=== PATIENT | male | born 1950 | race Caucasian/White ===

== ENCOUNTER 2024-04-24 06:08 | Day surgery (SDC) | payer OTHER, SELFPAY ==
[2024-04-24] VITALS (10 sets, daily range): BP systolic 116–145; BP diastolic 65–95; BMI 36.3
[2024-04-24] MEDS: LOW STRENGTH ASPIRIN 324 MG PO (07:18)
[2024-04-24] MEDS: NSS 335 ML IV (07:19)
--- NOTE | 2024-04-24 10:36 | ITS.CL.CATH ---
Clinical Account Manager - Catheterization
Cardiac Catheterization
Procedure Report:
LEFT HEART CATHETERIZATION
Date of Procedure: April 24, 2024
Procedures performed:
1: Coronary angiography
2: Left ventricular hemodynamic assessment
Primary Care Physician: Dr. Balwinder Blanc
Primary Restorative Care Technician: Dr. Kelvin Camara
INDICATION: The patient is a 73-year-old man with a past medical history significant for aortic stenosis who presents with increasing exertional dyspnea. Echocardiography performed on March 26 showed an estimated left ventricular ejection
fraction of 50% with a mean gradient across the aortic valve of 37 mmHg and a calculated valve area of 1.0 cm� with a dimensionless index of 0.22. The patient denies any typical angina. He notes increasing exertional dyspnea over the past several
months.
ACCESS: The patient was prepped and draped in usual sterile fashion. A 6 Syrian sheath was placed in the right radial artery using the Seldinger over the wire technique.
HEMODYNAMIC FINDINGS (mmHg):
LV(s/d,EDP): 165/17, 19
Ao(s/d,m): 125/80, 95
Aortic valve gradient on pullback: Mean 34 mmHg
ANGIOGRAPHIC FINDINGS:
Single-plane Left Ventriculography in CARDONA Projection: Not done
Coronary Angiography:
Dominance: Right
Left Main: The left main is heavily calcified at the ostium. There appears to be diffuse smooth plaquing with 30 to 40% distal tapering.
Left Anterior Descending: The left anterior descending artery is a medium caliber vessel that gives rise to a small high first diagonal branch and a larger second diagonal branch. The LAD has diffuse disease from the takeoff of the first diagonal
with a focal 50% stenosis followed by a long area of diffuse disease and at worst a 70% stenosis after the takeoff of the second diagonal branch. The mid and distal LAD is widely patent with only mild luminal irregularities and appears to be a good
surgical target. The second diagonal branch has proximal 70-80% disease and also appears to be a reasonable surgical target.
Left Circumflex: The left circumflex is a relatively large vessel that gives rise to a huge first obtuse marginal branch and a smaller distal left-sided posterior left ventricular branch. The first obtuse marginal branch has a smooth 70% proximal
stenosis with distal luminal irregularities and normal flow. The distal PLV branch is widely patent.
Right Coronary: The right coronary artery has a high anterior takeoff and was engaged using a 6 Syrian AL-1 diagnostic catheter. The right coronary artery is a large-caliber vessel that has diffuse moderate luminal irregularities throughout the AV
groove with diffuse calcification. There is a proximal 70% calcified stenosis followed by a mid 50 to 60% stenosis. The distal vessel bifurcates into a large posterior left ventricular branch and posterior descending artery. These vessels are
patent with mild luminal irregularities.
Fluoroscopy Time (min): 4.5
Radiation Dose (mGy): 586
DAP (Gy.cm2): 38
Closure device: None. A TR band was applied for hemostasis at the right wrist.
Complications: None.
ASSESSMENT:
1: Multivessel obstructive coronary artery disease with obstructive disease in the LAD, major first obtuse marginal branch, and proximal right coronary artery as described above. I think there are good surgical targets in the LAD, major diagonal,
OM1, and right coronary artery.
2: Severe aortic valvular stenosis.
CONCLUSIONS and RECOMMENDATIONS:
1: CT surgical evaluation for CABG and surgical aortic valve replacement.
2: Medical therapy for coronary artery disease. Start high dose high intensity statin therapy.
Narciso Pena M.D.
Copy to: Dr. Balwinder Blanc
== END 2024-04-24 11:45 | disposition home or self-care (01) ==
LOC: CATH 06:08
PROVIDERS: ATTENDING PHYSICIAN Internal Medicine Interventional Cardiology; FAMILY PHYSICIAN Student in an Organized Health Care Education/Training Program; OTHER PHYSICIAN Internal Medicine Cardiovascular Disease
DX: I35.0 Nonrheumatic aortic (valve) stenosis (principal); R06.09 Other forms of dyspnea; I25.10 Atherosclerotic heart disease of native coronary artery without angina pectoris; Z79.82 Long term (current) use of aspirin
CPT/HCPCS: 93005; 93458; C1894; Q9967

== ENCOUNTER → 2024-05-15 11:57 | Outpatient (REF) | payer OTHER, SELFPAY | LOC: RAD 11:57 | PROVIDERS: ATTENDING PHYSICIAN Nurse Practitioner Acute Care | DX: I35.0 Nonrheumatic aortic (valve) stenosis (principal) | CPT/HCPCS: 74174; 75572; Q9967 ==

== ENCOUNTER 2024-05-29 08:03 | Inpatient (IN) | payer OTHER, SELFPAY ==
[2024-05-09 08:32] VITALS: BMI 37.8
[2024-05-09 09:27] LABS: Urine Albumin 1+ (Neg - Trace); Urine Bilirubin Negative (Negative); Urine Character Clear (Clear); Urine Color Yellow; Urine Glucose Negative (Negative); Urine Ketone Negative (Negative); Urine Leukocyte 1+ (Negative); Urine Nitrite Negative (Negative); Urine Occult Blood Negative (Negative); Urine Specific Gravity 1.015 (<1.030); Urine Urobilinogen Negative (Neg - 1+)
[2024-05-09 09:44] LABS: % Basophils 0.9 % (0-2); % Eosinophils 3.1 % (0-6); % Immature Granulocytes 0.3 % (0-0.5); % Lymphocytes 26.6 % (20.5-51.1); % Monocytes 10.7 % (1.7-9.3); % Neutrophils 58.4 % (42.2-75.2); ALT (SGPT) 23 U/L (0-50); AST (SGOT) 29 U/L (17-59); Absolute Basophils 0.1 10^3/uL (0-0.2); Absolute Eosinophils 0.2 10^3/uL (0-0.7); Absolute Lymphocytes 1.5 10^3/uL (1.2-3.4); Absolute Monocytes 0.6 10^3/uL (0.1-0.6); Absolute Neutrophils 3.4 10^3/uL (1.4-6.5); Albumin 4.2 g/dl (3.5-5.0); Alkaline Phosphatase 78 U/L (38-126); Blood Urea Nitrogen 13 mg/dl (9-20); Calcium 9.9 mg/dl (8.4-10.2); Carbon Dioxide 28 mmol/L (22-30); Chloride 103 mmol/L (98-107); Direct Bilirubin 0.2 mg/dl (0.0-0.4); Estimated Creatinine Clearance 115 ml/min; Glucose 98 mg/dl (70-99); Hematocrit 41.6 % (39.0-52.0); Hemoglobin 14.1 g/dL (13.0-18.0); Mean Corp Hgb Conc. 33.9 g/dL (33.0-37.0); Mean Corpuscular Hgb 31.8 pg (27.0-31.0); Mean Corpuscular Volume 93.9 fL (80.0-94.0); Mean Platelet Volume 10.8 fL (7.4-10.4); Nucleated Red Blood Cells % 0 % (-); Platelet Count 150 10^3/uL (130-400); Potassium 4.3 mmol/L (3.5-5.1); Red Blood Cell Count 4.43 10^6/uL (4.70-6.10); Sodium 139 mmol/L (135-145); Total Bilirubin 0.8 mg/dl (0.2-1.3); Total Protein 7.2 g/dl (6.3-8.2); White Blood Cell Count 5.8 10^3/uL (4.8-10.8); eGFR > 60.00
[2024-05-09 09:47] LABS: INR 0.97; PT 13.4 Sec (11.4-14.6)
[2024-05-09 09:48] LABS: APTT 29.7 Sec (23.4-35.0)
--- NOTE | 2024-05-09 10:07 | CM ---
Met with Mr. Victoria and his daughter in [facility]. He states prior to admission he resides alone in a two story home with four steps to enter. He states he has a first floor set-up. He states prior to admission he was independent with ambulation and
adls. He states he does not have any DME in the home. He states he has a prescription plan and uses [facility]. He states his son Chris will stay with him a few days to assist in his care if needed. He has four children who are supportive.
The discharge plan is to return home with his son staying with him and a home visit by the Transitional Care Nurse when medically stable.
We reviewed pre-op and post-op routines. We reviewed the shower instructions. He has the soap, written instructions and the Cardiothoracic Surgery Educational Booklet. We reviewed restrictions including sternal precautions and driving
restrictions. We also discussed a home visit by the Transitional Care Nurse. He is agreeable to a home visit. The plan is for AVR/CABG on Friday, May 24, 2024.
[2024-05-09 10:46] LABS: Glycohemoglobin (HgbA1c) 5.2 % (4.0-5.6)
[2024-05-09 12:52] LABS: Urine Mucus Many
[2024-05-09 12:53] LABS: Urine Amorphous Seen; Urine Calcium Oxalate Crystals Seen; Urine Urothelial Cell 0-2 /LPF (FEW)
[2024-05-09 12:54] LABS: Urine Red Blood Cell 0-2 /HPF (0-2)
[2024-05-29] VITALS (11 sets, daily range): BP systolic 83–182; BP diastolic 51–138; BMI 36.0
[2024-05-29] MEDS: MAGNESIUM OXIDE 500 MG PO (08:32)
[2024-05-29] MEDS: LOPRESSOR 25 MG PO (08:32)
[2024-05-29] MEDS: PROTONIX 40 MG PO (08:32)
[2024-05-29] MEDS: BACTROBAN 2% OINTMENT 1 APPLIC NASAL ×2 (08:32→20:20)
--- NOTE | 2024-05-29 09:06 | PTCARENOTE ---
Pt admitted to cvicu, surgical clip and chg wipe prep completed. Lt arm bp 20 less then right arm. relayed to CT RAPID OUTSOLE STITCHER. Pre op meds administered. family at bedside
--- NOTE | 2024-05-29 10:29 | CM ---
CM following for DC planning needs.
Patient in OR today for planned CT Surgery.
Reviewed initial assessment. Pt. resides alone in a private, 2 story home/ 4 RYAN. Functionally, patient is indep. w/ ADLs, mobility without any assisted device.
DC plan is for home w/ CT Transitional Care RN. Son, Chris to stay temporarily with patient as he recovers.
CM to follow.
--- NOTE | 2024-05-29 10:53 | W.CVOR.SURPR ---
CVOR Surgeon Immed Pre Op
-
I have examined this patient prior to performance of the scheduled procedure.
The patient's condition is unchanged from the time of the dictated/written History and
Physical and the patient is able to undergo the scheduled procedure.
AVR + CABG + NICOLÁS Clip
[2024-05-29 12:16] LABS: ACT+ - POC 98 Seconds (82-134)
[2024-05-29 13:25] LABS: Urine Albumin Negative (Neg - Trace); Urine Bilirubin Negative (Negative); Urine Character Cloudy (Clear); Urine Color Yellow; Urine Glucose Negative (Negative); Urine Ketone Negative (Negative); Urine Leukocyte 1+ (Negative); Urine Nitrite Negative (Negative); Urine Occult Blood 3+ (Negative); Urine Urobilinogen Negative (Neg - 1+)
[2024-05-29 14:05] LABS: B.E. - POC 3.6 mmol/L; Glucose - POC 102 mg/dl (70-99); HCO3 - POC 28 mmol/L (21-28); Hematocrit - POC 35 % PCV (42-52); Hemodilution- POC No; Hemoglobin Calculated - POC 11.9; Lactate - POC 0.65 mmol/L (0.36-0.75); O2 Saturation %Calculated-POC 99.6 % (94-98); PCO2 - POC 42 mmHg (35-48); PO2 - POC 171 mmHg (83-108); POC Comment PRE; Potassium - POC 3.9 mmol/L (3.5-5.1); Sodium - POC 143 mmol/L (136-145); Specimen Type - POC Arterial; pH - POC 7.44 (7.35-7.45)
[2024-05-29 15:09] LABS: ACT+ - POC 629 Seconds (82-134)
[2024-05-29 15:19] LABS: Urine Amorphous Seen; Urine Red Blood Cell 16-20 /HPF (0-2)
[2024-05-29 15:19] LABS: B.E. - POC 5.6 mmol/L; Glucose - POC 156 mg/dl (70-99); HCO3 - POC 30 mmol/L (21-28); Hematocrit - POC 29 % PCV (42-52); Hemodilution- POC Yes; Hemoglobin Calculated - POC 9.8; Ionized Calcium - POC 1.11 mmol/L (1.15-1.33); Lactate - POC 0.97 mmol/L (0.36-0.75); O2 Saturation %Calculated-POC 99.9 % (94-98); PCO2 - POC 41 mmHg (35-48); PO2 - POC 305 mmHg (83-108); POC Comment CPB; Potassium - POC 4.7 mmol/L (3.5-5.1); Sodium - POC 141 mmol/L (136-145); Specimen Type - POC Arterial; pH - POC 7.47 (7.35-7.45)
[2024-05-29 15:22] LABS: Urine Bacteria Few (Negative)
[2024-05-29 15:32] LABS: ACT+ - POC 621 Seconds (82-134)
[2024-05-29 15:57] LABS: B.E. - POC 1.7 mmol/L; Glucose - POC 157 mg/dl (70-99); HCO3 - POC 26 mmol/L (21-28); Hematocrit - POC 29 % PCV (42-52); Hemodilution- POC Yes; Hemoglobin Calculated - POC 9.9; Ionized Calcium - POC 1.09 mmol/L (1.15-1.33); Lactate - POC 1.75 mmol/L (0.36-0.75); O2 Saturation %Calculated-POC 99.8 % (94-98); PCO2 - POC 36 mmHg (35-48); PO2 - POC 228 mmHg (83-108); POC Comment WARM; Potassium - POC 3.9 mmol/L (3.5-5.1); Sodium - POC 143 mmol/L (136-145); Specimen Type - POC Arterial; pH - POC 7.46 (7.35-7.45)
[2024-05-29 16:01] LABS: ACT+ - POC 104 Seconds (82-134)
[2024-05-29 16:04] LABS: B.E. - POC 4.1 mmol/L; Glucose - POC 107 mg/dl (70-99); HCO3 - POC 29 mmol/L (21-28); Hematocrit - POC 29 % PCV (42-52); Hemodilution- POC Yes; Ionized Calcium - POC 1.32 mmol/L (1.15-1.33); Lactate - POC 2.67 mmol/L (0.36-0.75); O2 Saturation %Calculated-POC 99.9 % (94-98); PCO2 - POC 42 mmHg (35-48); PO2 - POC 243 mmHg (83-108); POC Comment POST; Potassium - POC 3.9 mmol/L (3.5-5.1); Sodium - POC 144 mmol/L (136-145); Specimen Type - POC Arterial; pH - POC 7.44 (7.35-7.45)
--- NOTE | 2024-05-29 16:30 | CON.CAR ---
Addendum entered and electronically signed by Dinesh Whitman MD 05/29/24 17:34:
I saw and examined the patient.
The Behavior Interventionist's note was reviewed and I agree with the note.
Comment: Briefly, 73-year-old man past medical history of multivessel CAD and severe aortic stenosis who underwent AVR/CABG/left atrial appendage clip earlier today.
Patient is resting comfortably in the CVICU where he is intubated and lightly sedated with eyes opening to voice
Warm and well-perfused on exam
Filling pressures are mildly elevated based on invasive hemodynamics, suspect he will need IV diuretics
Currently maintaining sinus rhythm on telemetry
Twelve-lead ECG appears unchanged compared to prior
Agree with medical therapy as ordered�aspirin/Plavix/high intensity statin/beta-maddie/amiodarone
We will continue to follow with you
Original Note:
Consultation
Consultation Request
Date/Time Consultation Performed: 05/29/24
Requesting Provider: Dr. Worrell
Performing Provider: Subha Lockhart PA-C for Dr. Brown
Reason for Consultation: CABG/AVR
Medical History
-
Chief Complaint: CABG/AVR
History of Present Illness:
Patient is a 73-year-old male followed by Dr. Kelvin Camara of [facility] with hyperlipidemia, bilateral carotid stenosis, hypertension, [place], prediabetes, seen by alterations tailor for HARVEY. EF by echo 03/2024 with EF of 50%, severely dilated left atrium, moderate
to severe with mean gradient 37.3 and STEPHANIE 1.03 cm�, felt to be significantly worsened compared to prior from 2021 echo. With multivessel coronary disease by recent cath 04/24/24 as well, therefore referred to CT surgery. He presented today for
CABG/AVR/left atrial appendage clip. He remains intubated and sedated at this time.
PMH:
Severe
MV CAD by cath 04/24/24
HTN
HLD
mild B/L carotid stenosis, <50% stenosis overall B/L
[place]
Prediabetes
Bilateral lower extremity neuropathy
OA
Obesity
History of multinodular goiter
Former smoker
Alcohol use disorder
Past Medical History
Past Medical History: Other (in HPI)
Social History
Tobacco: Former Smoker
Employment: Retired
Family History
Family History: CAD (in father) and Other (AVR in sister per records)
Allergies / Home Medications
Allergy/AdvReac Type Severity Reaction Status Date / Time
doxycycline Allergy Rash Verified 05/29/24 15:38
�Medication �Instructions �Recorded �Confirmed �Type
ascorbic acid (vitamin C) 1,000 mg 1 g PO QID 04/24/24 05/29/24 History
tablet (Vitamin C)
aspirin 81 mg chewable tablet 81 mg PO DAILY #1 tab 04/24/24 05/29/24 Rx
cholecalciferol (vitamin D3) 125 125 mcg PO DAILY 04/24/24 05/29/24 History
mcg (5,000 unit) tablet (Vitamin
D3)
naproxen 500 mg tablet 500 mg PO BID 04/24/24 05/29/24 History
omega 5-cbf-wip-fish oil 1,000 mg 1 cap PO BID 04/24/24 05/29/24 History
(120 mg-180 mg) capsule (Fish Oil)
vitamin B complex 1 cap PO BID 04/24/24 05/29/24 History
Magnesium Oxlate 1 spray topical DAILY 05/08/24 05/29/24 History
niacin 500 mg tablet 500 mg PO QID 05/08/24 05/29/24 History
vitamin E 1 cap PO QID 05/08/24 05/29/24 History
zinc 50 mg PO DAILY 05/08/24 05/29/24 History
Review of Systems
-
Unable to obtain full review of systems at this time due to: Patient Intubation
Physical Exam
Vital Signs
BP Pulse Ox
161/98 97
03/19/25 08:16 05/29/24 08:16
Physical Exam
General: No Apparent Distress, Comfortable and Intubated
HEENT: Normocephalic and Moist Mucous Membranes
Respiratory: Clear and Non Labored Respirations
Cardiac: S1/S2 and Regular Rhythm
Musculoskeletal: No Clubbing, No Cyanosis, No Edema and Other (arleen wrap to RLE)
Skin: Warm, Dry and Other (sternotomy )
Neuro: Sedated
Impression / Plan
-
Primary Teacher Education Director: Dr. Camara of [facility]
Assessment:
Status post CABG x 4, bioprosthetic AVR, left atrial appendage clip 05/29/24
Severe
MV CAD by cath 04/24/24
HTN
HLD
mild B/L carotid stenosis, <50% stenosis overall B/L
[place]
Prediabetes
Bilateral lower extremity neuropathy
OA
Obesity
History of multinodular goiter
Former smoker
Alcohol use disorder
Plan:
-s/p CABG x4, bio AVR, NICOLÁS clip 05/29/24
-intubated, sedated
-off pressors. follow BPs
-in SR on tele. awaiting post op EKG
-continue post op care
-continue OP asa. does not appear to be on a statin as OP, would add post op
-d/w nursing
Data Reviewed
-
Medical Tests (Nuc Med, Echo etc): Report Reviewed by me
Labs: Labs Reviewed by me
Old Records: Reviewed
--- NOTE | 2024-05-29 16:33 | W.PN.CT.SURG ---
CT Surgery Operative Note
-
CARDIAC SURGERY OPERATIVE REPORT
Preoperative Diagnosis: Aortic valve stenosis with multivessel coronary artery disease with symptoms
Postoperative Diagnosis: Same
Procedure(s) Performed:
1. Standard sternotomy with aortic and right atrial cannulation
2. Internal mammary artery harvesting
3. Coronary artery bypass grafting x 4 (In situ BERNABE to LAD, Ao to RSVG to diagonal sequential to OM, Ao to RSVG to RPDA)
4. Surgical aortic valve replacement [25 mm bioprosthetic valve]
5. Left atrial appendage exclusion [40 mm clip]
6. Placement temporary ventricular pacing wire
7. Trans-esophageal echocardiography
Date of Surgery: 05/29/24
Comorbidities:
1. Severe aortic valve stenosis
2. Multivessel coronary artery disease with symptoms
3. Stable angina
4. Hyperlipidemia
5. Bilateral carotid stenosis
6. Hypertension
7. GLORIA
8. Prediabetic
9. Multi nodular goiter
10. Osteoarthritis
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
12. Alcohol use disorder
Attending Surgeon: David Worrell MD, MS
Assistants: Liberty Abraham PA-C (present and necessary to assistant maintenance manager, endoscopic vein harvest, retraction, suction, exposure, suture management, and wound closure under my direction) and Kelvin Elizabeth MD (Cardiac Surgery [facility])
Anesthesiology: Jasper Shah MD and Catnia Mahan CRNA
Scrub and Circulating RNs: Yuly Fowler, OSVALDO, Christine Chicas RN
Restaurant Floor Manager: Jordan Grady CCP
Anesthesia: GETA
EBL: per perfusion records
Products: none
CPB Time: 119 minutes
Aortic Cross Clamp Time: 106 minutes
Indication(s) for Procedures: This is a 73-year-old male with aortic valve stenosis and multivessel coronary disease, he was symptomatic with shortness of breath on exertion and increased fatigue. Given his disease pattern and his aortic valve
stenosis, multidisciplinary team discussion was to pursue surgical revascularization and surgical aortic valve replacement as part of his lifetime management. The STS risk was discussed with the patient, the risks were reviewed with the patient and
accept them and so we proceeded with surgery. A TAVR CT scan was performed prior to surgery in preparation for possible TAVR in SAVR down the line.
Aortic Valve Description: Heavily calcified trileaflet aortic valve, left and right coronary ostia the normal anatomic positions, heavy calcification into the body of the leaflet and into the annulus particularly towards the left coronary cusp.
Conduit(s) Quality:
BERNABE -excellent/skeletonized excellent flow
RSVG -excellent/uniform with minimal varicosities
Target(s) Quality:
RPDA - Excellent/mean flow of approximately 56 cc a minute with a pulsatile index of 1.5
OM -excellent/this was part of a sequential graft, mean flow down the sequential vein graft was 60 cc a minute at a pulsatile index of 4.4
Diagonal�excellent see above
LAD -excellent/mean flow of approximately 50 cc a minute at a pulsatile index of 2.8
Findings: LVEF on intraoperative ANDREAS was 60% and 60% post procedure with no new regional wall motion abnormalities. His aortic valve was trileaflet and heavily calcified. The aortic valve was replaced with a total of 15 nonpledgeted 2 Ethibond
sutures placed circumferentially from LVOT through annulus through sewing cuff. These were secured into place with core knots. There was no prosthetic PVL or AI. Mean gradient across the prosthesis was 13 mmHg however he was hyperdynamic at this
time with the cardiac index of 2.6. The BERNABE was harvested in a skeletonized fashion. Following bypass grafting, test dose cardioplegia was given down each distal and confirmed patency and hemostasis. Flow probe assessment was done on each graft
which demonstrated excellent mean flow and pulsatility indices. No inotrope or needed, no blood products were given, he was in sinus rhythm after short period of VVI pacing. His left atrial appendage was verified to be free of any thrombus or
debris preoperatively and found to be totally occlusive postoperatively
Specimen(s): Aortic valve leaflets.
Prosthesis:
1. 40 mm clip, serial number: [id number]
2. 25 mm Medtronic Avalus ultra bioprosthetic valve, serial number [id number]
Description of Procedure: The patient was taken to the operating room. Their identity and procedure to be performed were verified and they were positioned supine on the operating table. Induction via general anesthesia with endotracheal intubation
was performed and central venous access and arterial monitoring were inserted. A preoperative transesophageal echocardiogram was performed. The patient was then prepped and draped from chin to feet in a sterile fashion. A preoperative time-out was
performed with all members of the team present. A midline chest incision was performed along with median sternotomy. Simultaneous endoscopic access of the right lower extremity for saphenous vein harvest was obtained along with administration of an
initial 5,000 units of IV heparin. A RulTract sternal retractor was positioned to exposure the left internal mammary bed. The mammary was harvested in a skeletonized fashion and found to have good flow. A bulldog clamp was applied to the distal end
of the mammary after dividing it. It was wrapped in a papaverine soaked RayTec and replaced back into the left hemithorax. The RulTract was exchanged for a median sternal retractor. The innominate vein was isolated. Full heparinization was given (a
total of 65,000 units). I created a pericardial well. The aortic cannulation site was chosen where it was soft, pliable, and free of calcium. Cannulation was performed with an arterial cannula in the ascending aorta and a triple-stage venous cannula
through the right atrial appendage. The arterial cannula line had an appropriate bounce and correlating pressures with test dosing. Next, a root vent/antegrade cannula was inserted into the ascending aorta. The ACT was confirmed to be over 400 and
retrograde autologous priming was performed before commencing cardiopulmonary bypass. The pulmonary artery was away from the aorta to facilitate a clamp site. The aortic cross-clamp was placed after decreasing the flow on the bypass and
mean arterial pressure. A total of 1.2L initial dose of antegrade Del-Nido cardioplegia solution was given and planned for re-dosing every 75 minutes as necessary. There was rapid electro-mechanical arrest of the heart at 300 cc of cardioplegia. The
left ventricle was observed for distention on echocardiogram and manual palpation. Cold slush was placed into a sponge and topically on the RV while we systemically cooled to 34 degrees centigrade. Once heart was fully arrested it was rotated
medially and the left atrial Penders was clipped with a 40 mm device.
Since I ready had positioned the heart and or expose the lateral wall, the OM target was identified and a small coronary arteriotomy was created with a sharp blade and enlarged with Caballero scissors. The vein was beveled and end-to-side anastomosis
was created with 7-0 Prolene in a running fashion. Antegrade cardioplegia was given down the graft to test patency and hemostasis was confirmed. Next the heart was positioned in order to expose a large diagonal vessel. The underbelly of the vein
graft was incised and a [id number]-[id number] anastomosis was created with 7-0 Prolene in running fashion. A bulldog clamp was placed in the distal end of the vein graft and cardioplegia was given down the vein graft test with patency and hemostasis. The
vein graft was then measured and cut to the aorta. I positioned the heart to expose the distal right coronary at the posterior descending artery. A sleetmute blade was used to expose the coronary and perform the arteriotomy. Coronary Caballero scissors
were used to enlarge the incision. The saphenous vein was trimmed and beveled to an appropriate size. The distal anastomosis was performed using 7-0 prolene in an end-to-side fashion. Antegrade cardioplegia was administered into the graft.
Appropriate hemostasis and flow were confirmed. The graft was measured for length to the aorta and cut. A suitable target on the mid/distal left anterior descending was identified. We dissected and prepared the distal target in a similar fashion. We
retrieved the BERNABE from the chest and created a pericardial opening while being cognizant of the phrenic nerve to facilitate the course of the mammary. The distal end of the mammary was prepped and beveled to size. We verified orientation and length
of the PABLO and found brisk flow. An end-to-side anastomosis was created with a 7-0 prolene. We temporarily released the bulldog clamp on the mammary to inspect flow. Perfusion to the LAD territory was visualized and hemostasis was confirmed. The
bull clamp was replaced on the mammary.
Carbon dioxide was used to flood the field. A 20 LV vent was placed via the right superior pulmonary vein. I turned my attention to the aortic valve and manually identified the location of the right coronary take off. An aortotomy was made
approximately 1.5cm above the sinotubular junction. The location of both left and right coronary vessels were visualized in the root. The aortic valve was inspected and found to be heavily calcified. The leaflets were excised and sent for
pathological assessment. The annulus was debrided of any calcium. The root and left ventricular outflow tract were thoroughly irrigated to remove any debris. A total of 15, nonpledgeted 2-0 ethibond annular sutures were placed [id number]
circumferentially. These were brought through the sewing cuff of the prosthetic valve which as then parachuted into place. The left and right coronary ostia were visualized and were unobstructed by the valve. A Cor-Knot device was used to secure the
annular sutures. The valve was inspected and was well seated. The aortotomy was approximated with 4-0 prolene in two layers. The heart was filled and the root was distended with antegrade cardioplegia to make final assessment of graft length and
orientation. I created 2 aortotomies using a #11 blade then a 4.0mm aortic punch above the aortic suture line. The proximal anastomoses were created in an end-to-side fashion using 6-0 Prolene. At the same time, we started to re-warm to 36.5 degrees
centigrade. The bulldog clamp was removed from the mammary and temporary bipolar ventricular pacing wires were placed on the base of the right ventricle. The patient was placed in a Trendelenburg position and flows on bypass were lowered. The aortic
cross clamp was removed and flows were slowly brought back up. The aortotomy appeared hemostatic. All bypass grafts were inspected and were free from kinking or twisting. The distal and proximal anastomoses appeared hemostatic. De-airing maneuvers
were performed. Transesophageal echocardiography revealed no paravalvular leak and appropriate prosthetic function. Once de-airing was satisfactory, the left ventricular and root vents were removed. After verifying acceptable parameters, we
initiated weaning from cardiopulmonary bypass. Once we were off cardiopulmonary bypass, the venous cannulas was clamped and removed. A test dose of protamine was administered and the patient was monitored for any adverse reaction before resuming
protamine. Once half of the protamine dose was delivered, pump suckers were turned off and the systolic blood pressure was lowered for aortic decannulation. The aortic cannula was removed and pursestrings were tied down. All cannulation sites were
oversewn with a 4-0 prolene. The aortic line, proximal, and distal coronary anastomoses were hemostatic. The mammary bed was inspected and hemostasis was confirmed. Once the mediastinum was hemostatic, a 19Fr Wilver drain was placed in the left
pleural cavity and two 24Fr Wilver drains were placed within the pericardium. The sternum was approximated with 4#7 single and 3 #8 double stainless steel wires. Fascia was approximated with #1 vicryl suture. The subcutaneous, dermis and epidermis
were closed in layers in a running fashion. The skin wound was cleansed and dressed.
All instrument, sponge, and needle counts were confirmed to be correct x 2 at the end of the operation. The patient was transferred to the cardiac intensive care unit in critical but stable condition.
I, Dr. David Worerll, was present, scrubbed for, and performed all critical elements of this procedure.
David Worrell MD, MS
Cardiothoracic Surgeon
[facility]
This operative dictation was created using the Conzoom dictation system. Please excuse any grammatical, typographical, or 'sound alike' errors
[2024-05-29 17:00] LABS: Glucose - Point of Care 116 mg/dl (70-99)
[2024-05-29 17:12] LABS: B.E. 0.6 mmol/L; Ionized Calcium 1.28 mMOL/L (1.15-1.33); PCO2 44 mmHg (35-48); PO2 76 mmHg (83-108); Potassium 3.9 mMOL/L (3.5-5.1); Sodium 139 mMOL/L (136-145); pH 7.38 (7.35-7.45)
[2024-05-29 17:14] LABS: Mixed Venous O2 Saturation 77.8 %
[2024-05-29 17:15] LABS: Hematocrit 29.8 % (39.0-52.0); Hemoglobin 10.5 g/dL (13.0-18.0); Platelet Count 104 10^3/uL (130-400)
[2024-05-29] MEDS: KCL 50 IV (17:20)
--- NOTE | 2024-05-29 17:23 | PTCARENOTE ---
Received pt from CVOR team. Intubated and sedated. Placed on SIMV 60% rate 12 tv 600 psv 5 peep 5 pulse ox 95%. SR on monitor. RT IJ cordis with swan floated to 43 cm. LT radial A line transducing. Lines leveled, recalibrated and flushed.
Epicardial wire to back up of vvi 50. No pacing noted at present. Chest tubes x 3 to - 20 cm suction. No air leak or crepitus noted. Abdomen soft , hypo active bowel sounds noted. Tucker draining clear yellow urine. RT groin puncture site well
approximated. Rt SVG site also well approximated with Tomasz wrap intact. Pulses palpable. Drips infusing on arrival precedex. Plan discussed with CT team.
[2024-05-29 17:24] LABS: INR 1.34; PT 17.1 Sec (11.4-14.6)
--- NOTE | 2024-05-29 17:28 | W.PN.UPDATE ---
Update Note
Progress Note Update
73-year-old male was electively admitted on 05/29/2024 for AVR, CABG, clip due to aortic stenosis and triple-vessel coronary disease. Op note, the left upper extremity blood pressure was lower than the right upper extremity pressure by 20
mmHg
IV fluids: 1000
U.O.:� 500
Blood:� none
Wires:� V-wires
Drips: Levo @ 4, Insulin
Sedatives:� Precedex @ 0.4
�
NEURO: sedated, pupils +2mm B/L
RESP: #8OT @24cm> 600/40%//. Lungs clear B/L. 2 mediastinal (50cc on arrival) and L pleural (5cc on arrival) chest tubes to -20cm suction. Sanguineous drainage, no airleak, no crepitus.
CV: RRR +S1, S2, no S3, no�rub, no murmur. Dermabond to median sternotomy. RIJ w/Leiter locked @ 48cm. PA 32/20; CVP 14; C.O 5.35/CI 2.38
ABD: round, soft, no BS
EXT: no edema, +2/4 DP pulses B/L, no femoral bruit, RLE TUCKER wrap intact; left radial A-line intact
: Tucker with clear yellow urine
�
A/P: POD #0 s/p AVR #25mm Avalus Ultra, CABG x 4 (BERNABE-LAD, SVG-Diag & OM, SVG-AVIONICS REPAIR TECHNICIAN), LAAE #40mm clip
ANDREAS: EF�65%, AV 25/13mmHg
- wean and extubate
- will need instruction regarding antibiotic prophylaxis for dental and invasive procedures
# CAD
- will begin ASA, Plavix, statin, beta maddie when off pressors and extubated
�
# acute surgical blood loss anemia-expected
- trend CBC
�
# Obesity (Class I)
- chol lowering diet
[2024-05-29 17:33] LABS: Blood Urea Nitrogen 14 mg/dl (9-20); Estimated Creatinine Clearance > 125 ml/min; Glucose 110 mg/dl (70-99); Magnesium 2.5 mg/dl (1.6-2.3)
[2024-05-29] MEDS: PACERONE PO ×2 (17:59→21:57)
[2024-05-29] MEDS: NEURONTIN PO ×2 (17:59→21:57)
[2024-05-29] MEDS: NSS 500 IV (17:59)
[2024-05-29] MEDS: ANCEF 10 IV ×2 (17:59)
[2024-05-29] MEDS: TYLENOL PO ×2 (18:00→21:58)
[2024-05-29] MEDS: CARDENE 200 IV (18:01)
[2024-05-29 18:11] LABS: Glucose - Point of Care 138 mg/dl (70-99)
--- NOTE | 2024-05-29 18:11 | PTCARENOTE ---
Awakens spontaneously, nodding head appropriately to questions. but drifts back to sleep quickly.
[2024-05-29] MEDS: OFIRMEV 100 IV (18:40)
[2024-05-29 18:55] LABS: Glucose - Point of Care 147 mg/dl (70-99)
--- NOTE | 2024-05-29 19:00 | PTCARENOTE ---
Received pt from [facility]. pt is s/p CABGx4, AVR, NICOLÁS clip. pt is resting comfortable in bed. pt is sedated and intubated. pt responds to voice, opens eyes, moves all extremities and follows commands. heart sounds audible, rub present, radial and DP
pulses palpable, no edema noted, temp epicardial V-wires present, not connected to pacer box. lungs clear, diminished at b/l bases, spo2 97%, ETT @25cm, vent set to SIMV TV 600, PEEP 5, Fio 40%, left pleural CT and x2 MS CT to -20 wall suction, no
air leaks, no tidaling, no crepitus. hypoactive BS, abdomen soft, non tender, round/obese. pt voiding clear yellow urine via rosas catheter. surgical sites maintained. right ij cordis/swan, left A-line, PIV all maintained, leveled, and zeroed.
insulin and Precedex infusing. will continue to monitor.
[2024-05-29 20:02] LABS: Glucose - Point of Care 155 mg/dl (70-99)
[2024-05-29] MEDS: SENOKOT-S PO (20:20)
[2024-05-29 20:46] LABS: B.E. -0.1 mmol/L; HCO3 25.9 mmol/L (21-28); Ionized Calcium 1.24 mMOL/L (1.15-1.33); PCO2 47 mmHg (35-48); PO2 111 mmHg (83-108); Potassium 4.3 mMOL/L (3.5-5.1); Sodium 138 mMOL/L (136-145); pH 7.35 (7.35-7.45)
[2024-05-29 20:47] LABS: Hematocrit 32.8 % (39.0-52.0); Hemoglobin 11.5 g/dL (13.0-18.0); Platelet Count 124 10^3/uL (130-400)
[2024-05-29 21:02] LABS: Glucose - Point of Care 136 mg/dl (70-99)
--- NOTE | 2024-05-29 21:10 | PTCARENOTE ---
ABG lab drawn and resulted. CVPA reviewed labs and gave ok to extubate. extubated at 2109 by RT. pt AAOx4. mouth care provided.
[2024-05-29] MEDS: DILAUDID 0.25 MG IV (21:13)
[2024-05-29] MEDS: ANCEF 5 IV (21:15)
--- NOTE | 2024-05-29 21:15 | PTCARENOTE ---
Pt resting comfortably in bed. extubated at 2109. CHG bath provided, mouth care provided, and rosas care provided. 0.25mg of dilaudid given for pain. call lopez within reach. will continue to monitor.
[2024-05-29] MEDS: LIPITOR PO (21:57)
[2024-05-29 22:06] LABS: Glucose - Point of Care 145 mg/dl (70-99)
[2024-05-29] MEDS: LOW STRENGTH ASPIRIN 81 MG PO (22:15)
[2024-05-29 23:01] LABS: Glucose - Point of Care 140 mg/dl (70-99)
[2024-05-30] VITALS (17 sets, daily range): BP systolic 85–128; BP diastolic 44–63; PULSE 84; O2SAT 94; BMI 37.8
[2024-05-30] MEDS: ROXICODONE 5 MG PO ×4 (00:05→19:11)
[2024-05-30 01:00] LABS: Glucose - Point of Care 155 mg/dl (70-99)
--- NOTE | 2024-05-30 01:00 | PTCARENOTE ---
CVPA informed that pt's urine output has been decreasing, 35ml for the last two hrs. SVR has also decreased from 923 to 747. levophed gtt turned off per protocol. CVPA informed of all of the above.
[2024-05-30] MEDS: DILAUDID 0.5 MG IV (01:33)
[2024-05-30 03:08] LABS: Glucose - Point of Care 138 mg/dl (70-99)
[2024-05-30 03:35] LABS: Hematocrit 31.2 % (39.0-52.0); Hemoglobin 10.8 g/dL (13.0-18.0); Mean Corp Hgb Conc. 34.6 g/dL (33.0-37.0); Mean Corpuscular Hgb 31.6 pg (27.0-31.0); Mean Corpuscular Volume 91.2 fL (80.0-94.0); Mean Platelet Volume 10.3 fL (7.4-10.4); Platelet Count 121 10^3/uL (130-400); Red Blood Cell Count 3.42 10^6/uL (4.70-6.10); Red Cell Dist. Width 13.2 % (11.5-14.5); White Blood Cell Count 12.8 10^3/uL (4.8-10.8)
[2024-05-30] MEDS: DILAUDID 0.25 MG IV (03:45)
[2024-05-30 03:50] LABS: Blood Urea Nitrogen 20 mg/dl (9-20); Calcium 9.1 mg/dl (8.4-10.2); Carbon Dioxide 27 mmol/L (22-30); Chloride 107 mmol/L (98-107); Estimated Creatinine Clearance 115 ml/min; Glucose 145 mg/dl (70-99); Magnesium 2.1 mg/dl (1.6-2.3); Potassium 4.4 mmol/L (3.5-5.1); Sodium 140 mmol/L (135-145); eGFR > 60.00
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
[2024-05-30 04:25] LABS: Glucose - Point of Care 143 mg/dl (70-99)
--- NOTE | 2024-05-30 04:30 | PTCARENOTE ---
Pt AM labd drawn and sent. CVPA reviewed results and placed order to deline pt. [place] and left radial A-line removed without difficulty. EKG obtained, NSR.
[2024-05-30 05:09] LABS: Glucose - Point of Care 133 mg/dl (70-99)
[2024-05-30] MEDS: TYLENOL 1000 MG PO ×3 (05:19→21:50)
[2024-05-30] MEDS: ANCEF 5 IV ×2 (05:20→13:35)
[2024-05-30 06:11] LABS: Glucose - Point of Care 107 mg/dl (70-99)
[2024-05-30 07:02] LABS: Glucose - Point of Care 131 mg/dl (70-99)
--- NOTE | 2024-05-30 08:00 | PTCARENOTE ---
Assumed care of patent from hourly shift RN. AAo x 3 sitting up in the chair. C/o pain in sternum and Lt flank. SR on monitor. Epicardial wire to back up of vvi 50. 4 L NC 98%, oxygen weaned to 2 L . Chest tubes x 3 to - 20 cm suction. No air
leak or crepitus Noted. Abdomen round, non tender with hypoactive bowel sounds noted. Due to void. Surgical sites c,d,i. Pulses palpable. Trace edema appreciated. Insulin drip per glycemic protocol maintained.
[2024-05-30] MEDS: PACERONE 200 MG PO ×3 (08:20→21:50)
[2024-05-30] MEDS: FLEXERIL 5 MG PO (08:20)
[2024-05-30] MEDS: PLAVIX 75 MG PO (08:20)
[2024-05-30] MEDS: MAGNESIUM OXIDE 500 MG PO ×2 (08:20→19:09)
[2024-05-30] MEDS: NEURONTIN 100 MG PO ×3 (08:20→21:50)
[2024-05-30] MEDS: LOPRESSOR 12.5 MG PO ×2 (08:20→19:08)
[2024-05-30] MEDS: PROTONIX 40 MG PO (08:20)
[2024-05-30] MEDS: SENOKOT-S 1 TABLET PO ×2 (08:20→19:08)
[2024-05-30] MEDS: BACTROBAN 2% OINTMENT 1 APPLIC NASAL ×2 (08:21→21:50)
[2024-05-30] MEDS: LOW STRENGTH ASPIRIN 81 MG PO (08:21)
[2024-05-30] MEDS: LIDOCAINE 4% PATCH 1 PATCH TOPICAL (08:21)
[2024-05-30 08:24] LABS: Glucose - Point of Care 116 mg/dl (70-99)
--- NOTE | 2024-05-30 09:23 | W.PN.ANS.POP ---
Anesthesia Post Operative
- Anesthesia Post Op Note
Vital Signs Stable-See Nursing Note: Yes
Airway Patent: Yes
Adequate Pain Control: Yes
Change in Mental Status: No
Current Postoperative Nausea & Vomiting: No
Anesthesia Complications: No
General Anesthetic Recall: No
Unplanned Admission: No
Post Op Hydration Adequate: Yes
--- NOTE | 2024-05-30 09:23 | W.PN.CARDCBS ---
Addendum entered and electronically signed by Bry Cox MD 05/30/24 11:34:
Attending addendum: Patient seen and examined. Clinically doing well post four-vessel bypass with BERNABE-LAD [id number], SVG-PDA, AVR, and NICOLÁS clip. Chest tube x 1 has been removed earlier today. Hopefully the second chest tube coming out
tomorrow. He states that he is generally doing well and is largely without complaint. Will follow.
Rhythm: Short run of probable AT
GEN: awake, conversant. NAD
HEENT: NC/AT, sclera anicteric
Lungs: Clear anterior and lateral
CV: Reg +Rub
Ext: No edema
RECOMMENDATIONS:
-Doing well and largely without complaints
-Continue aspirin and clopidogrel for now
-Will follow
Original Note:
Today's Communication / Plan
-
continue post op care
in SR
Impression / Plan
-
Primary Nurse'S Assistant: Dr. Camara of [facility]
Assessment:
Severe
MV CAD by cath 04/24/24
Status post CABG x 4 In situ BERNABE to LAD, Ao to RSVG to diagonal sequential to OM, Ao to RSVG to RPDA, bioprosthetic AVR, left atrial appendage clip 05/29/24
HTN
HLD
mild B/L carotid stenosis, <50% stenosis overall B/L
GLORIA
Prediabetes
Bilateral lower extremity neuropathy
OA
Obesity
History of multinodular goiter
Former smoker
Alcohol use disorder
Plan:
-s/p CABG x4, bio AVR, NICOLÁS clip 05/29/24
-doing well
-off pressors
-wean off supp O2
-in SR on review of tele overnight. continue BB/amio
-continue post op care, OOB/IS as able
-continue OP asa and plavix. does not appear to be on a statin as OP, lipitor added post op
-d/w nursing
Progress Note - Nurse'S Assistant
Subjective
Date of Service: May 30, 2024
no issues. doing well
Objective
Labs:
05/30/24 03:06
05/30/24 03:06
Labs
Hgb 10.8 g/dL (13.0-18.0) L 05/30/24 03:06
Hct 31.2 % (39.0-52.0) L 05/30/24 03:06
Plt Count 121 10^3/uL (130-400) L 05/30/24 03:06
PT 17.1 Sec (11.4-14.6) H 05/29/24 17:00
INR 1.34 05/29/24 17:00
APTT 33.0 Sec (23.4-35.0) 05/29/24 17:00
Sodium 140 mmol/L (135-145) 05/30/24 03:06
Potassium 4.4 mmol/L (3.5-5.1) 05/30/24 03:06
BUN 20 mg/dl (9-20) 05/30/24 03:06
Creatinine 0.7 mg/dL (0.7-1.3) 05/30/24 03:06
Glucose 145 mg/dl (70-99) H 05/30/24 03:06
Vital Signs and I&O:
Vital Signs
Temp Pulse Resp BP Pulse Ox
98.4 F 80 16 112/53 96
05/30/24 08:00 05/30/24 08:15 05/30/24 08:00 05/30/24 08:00 05/30/24 08:15
Vital Signs
Temp Pulse Resp BP Pulse Ox
98.4 F 80 16 112/53 96
05/30/24 08:00 05/30/24 08:15 05/30/24 08:00 05/30/24 08:00 05/30/24 08:15
Intake & Output
05/28/24 05/29/24 05/30/24 05/31/24
07:59 07:59 07:59 07:59
Intake Total 708.74 / 1081.34 372.6 / 372.6
Output Total 1055 / 1075
Balance -346.26 / 6.34 352.6 / 352.6
Physical Exam
Physical Exam
GEN: No distress, awake, alert, oriented x3. on supp O2
HEENT: supple, anicteric, mmm, eomi
LUNGS: CTA B/L, no wheezes/rales
CV: Reg, S1/S2, +rub
ABD: soft, NT/ND
EXT: No cyanosis, clubbing. trace edema of B/L LE
NEURO: Gross non-focal
SKIN: Warm, pink, dry. No rash. Sternotomy incision c/d/i. CTs in place
[2024-05-30 10:02] LABS: Glucose - Point of Care 111 mg/dl (70-99)
--- NOTE | 2024-05-30 10:59 | PTCARENOTE ---
Lt pleural chest tube removed , pt tolerated w/o issue. Oxygen weaned to 2 L. VSS Assessment otherwise unchanged from prior
[2024-05-30 11:55] LABS: Glucose - Point of Care 102 mg/dl (70-99)
--- NOTE | 2024-05-30 12:49 | CON.INTV ---
Addendum entered and electronically signed by Saritha Nelson MD 05/31/24 08:00:
Patient transferred out of CVICU
[employer] Supervisor service will sign off, please call as needed.
Original Note:
Consultation
Consultation Request
Date/Time Consultation Requested: 05/29/2024
Date/Time Consultation Performed: 05/30/2024
Requesting Provider: David Worrell
Performing Provider: Saritha Nelson
Reason for Consultation: Post CABG and AVR
Medical History
-
History of Present Illness:
Patient is a very pleasant 70-year-old gentleman with known history of bilateral carotid stenosis, high blood pressure, hyperlipidemia who was evaluated as an outpatient for dyspnea on exertion. Patient was seen by cardiology service and had an
echocardiogram suggestive of moderate to severe AAS, this was followed by a coronary angiogram which was suggestive of multivessel coronary artery disease. Patient subsequently was seen by CT surgery clinic and was scheduled for a coronary artery
bypass graft with aortic valve replacement as well as left atrial appendage exclusion. He had the surgery performed on 05/29 and was subsequently transferred to CVICU. [employer] Supervisor service was consulted for further management.
Patient since has been extubated, weaned off pressors and was comfortably sitting in chair during my evaluation and was in good spirits.
PMH:
Severe
MV CAD by cath 04/24/24
HTN
HLD
mild B/L carotid stenosis, <50% stenosis overall B/L
GLORIA
Prediabetes
Bilateral lower extremity neuropathy
OA
Obesity
History of multinodular goiter
Former smoker
Alcohol use disorder
Past Medical History
Past Medical History: Other (in HPI)
Social History
Tobacco: Former Smoker, patient smoked very briefly in his teenage years. No significant smoking history.
Employment: Retired
Family History
Family History: CAD (in father) and Other (AVR in sister per records)
Allergies / Home Medications
Allergies
Allergy/AdvReac Type Severity Reaction Status Date / Time
doxycycline Allergy Rash Verified 05/29/24 15:38
Home Medications
�Medication �Instructions �Recorded �Confirmed �Last Taken �Type
ascorbic acid (vitamin C) 1,000 mg 1 g PO QID Supplement 04/24/24 05/29/24 05/15/24 08:00 History
tablet (Vitamin C)
cholecalciferol (vitamin D3) 125 125 mcg PO DAILY Supplement 04/24/24 05/29/24 05/15/24 08:00 History
mcg (5,000 unit) tablet (Vitamin
D3)
naproxen 500 mg tablet 500 mg PO BID Pain 04/24/24 05/29/24 05/15/24 08:00 History
omega 0-goo-mfp-fish oil 1,000 mg 1 cap PO BID Supplement 04/24/24 05/29/24 05/15/24 08:00 History
(120 mg-180 mg) capsule (Fish Oil)
vitamin B complex 1 cap PO BID Supplement 04/24/24 05/29/24 05/15/24 08:00 History
Magnesium Oxlate 1 spray topical DAILY Electrolyte 05/08/24 05/29/24 05/15/24 08:00 History
Repletion
niacin 500 mg tablet 500 mg PO QID High Cholesterol 05/08/24 05/29/24 05/15/24 08:00 History
vitamin E 1 cap PO QID Supplement 05/08/24 05/29/24 05/15/24 08:00 History
zinc 50 mg PO DAILY Supplement 05/08/24 05/29/24 05/15/24 08:00 History
aspirin 81 mg chewable tablet 81 mg PO DAILY Blood Clot 05/30/24 05/29/24 05/28/24 08:00 History
Prevention/Tx
Review of Systems
-
Hematologic/Lymphatic: Other (All 14 systems reviewed and negative except as stated above in the history of present illness.)
Vitals / Labs / Diagnostic Testing
Vital Signs
Temp Pulse Resp BP Pulse Ox
98.0 F 80 16 124/62 95
05/30/24 12:05 05/30/24 12:15 05/30/24 12:05 05/30/24 11:54 05/30/24 12:05
Lab Data
05/30/24 03:06
05/30/24 03:06
Laboratory Results
05/29/24 05/29/24 05/29/24
17:00 20:41 20:45
PT 17.1 H
INR 1.34
APTT 33.0
pH 7.38 7.35 Cancelled
pCO2 44 47 Cancelled
pO2 76 L 111 H Cancelled
HCO3 26.0 25.9 Cancelled
O2 Delivery Level Cancelled
Microbiology
05/29/24 12:00 Urine Urine Culture - Final
NO GROWTH
Diagnostic Testing:
Physical Exam
-
HEENT: Normocephalic
Cardiovascular: S1/S2
Respiratory: Clear and Non-Labored Respirations
GI: Soft and Non Distended
Neurology: Awake and AO x 3
Skin: Warm
General: Comfortable
Assessment
-
S/p CABG x 4, AVR with bioprosthetic valve with Left Atrial Appendage exclusion, POD #1
Patient extubated 05/29
Off all pressors
PA catheter discontinued
Chest tube in place, management per CT surgery service
PA catheter readings reviewed
ABG(s) reviewed, 7.35, 47, 111
CXR with no obvious opacities/infiltrates
Maintain supplement oxygen as needed, currently saturating well on room air
No prior history of pulmonary disease
Can add nebulizers if needed
Aspiration precautions
Encouraged incentive spirometry, OOB/ambulation/early mobility
Advance diet as tolerated following extubation
Monitor critical I/O's +320 ml
Hb/platelets postoperatively stable
Trend CBC for now
Can transfuse if indicated for Hb <7, plt <50 in surgical patients
Insulin protocol initiated and ongoing, anticipate will come off insulin later today
We will follow
Total time spent on this consultation/encounter _58__ minutes which includes review of history, physical exam, medications, laboratory data, personal review of imaging, extensive review of outpatient records, discussion with care team and
respiratory therapy.
Data:
Cardiac Cath 04/2024:
1: Multivessel obstructive coronary artery disease with obstructive disease in the LAD, major first obtuse marginal branch, and proximal right coronary artery as described above. I think there are good surgical targets in the LAD, major diagonal,
OM1, and right coronary artery.
2: Severe aortic valvular stenosis.
ANDREAS 05/2024:
Overall LVEF is approximately 60% with no RWMA.
Severe concentric left ventricular hypertrophy.
Stage II Diastolic dysfunction.
Mildly dilated left atrium.
Trace tricuspid regurgitation.
Mild posterior mitral annular calcification.
Severe aortic stenosis.
Mild aortic insufficiency.
STEPHANIE calculates to 1.0 cm2 by continuity equation.
Moderate calcified sessile atheroma seen in the distal aortic arch.
Mild sessile atheroma seen in the descending aorta.
[2024-05-30] MEDS: FERRLECIT 110 MG IV (13:34)
[2024-05-30 13:40] LABS: B.E. - POC 5.6 mmol/L; Glucose - POC 114 mg/dl (70-99); HCO3 - POC 31 mmol/L (21-28); Hematocrit - POC 27 % PCV (42-52); Hemodilution- POC Yes; Hemoglobin Calculated - POC 9.3; Ionized Calcium - POC 1.08 mmol/L (1.15-1.33); Lactate - POC < 0.30 mmol/L (0.36-0.75); PCO2 - POC 49 mmHg (35-48); PO2 - POC 443 mmHg (83-108); POC Comment CPB; Potassium - POC 4.9 mmol/L (3.5-5.1); Sodium - POC 140 mmol/L (136-145); Specimen Type - POC Arterial; pH - POC 7.41 (7.35-7.45)
[2024-05-30 13:48] LABS: ACT+ - POC > 1003 Seconds (82-134)
[2024-05-30 13:48] LABS: ACT+ - POC > 1003 Seconds (82-134)
--- NOTE | 2024-05-30 13:57 | CM ---
CM following for DC planning needs.
Met w/ patient and mult. family members at bedside.
Reviewed CM role.
Reviewed DC plan for home w/ CT Transitional Care RN.
CM to cont. to follow.
--- NOTE | 2024-05-30 14:04 | PTCARENOTE ---
Pt with no void post rosas removal this am, Denies urge, Bladder scan preformed for [address] GAMEPLAY PROGRAMMER[address] Encouraged to drink. Will monitor.
[2024-05-30 14:17] LABS: Glucose - Point of Care 128 mg/dl (70-99)
[2024-05-30 16:28] LABS: Glucose - Point of Care 107 mg/dl (70-99)
[2024-05-30] MEDS: NSS IV (16:29)
--- NOTE | 2024-05-30 16:42 | PTCARENOTE ---
Pt bladder scanned as per policy, scanned for 315. Denies urge. VSS, Assessment unchanged otherwise from prior.
--- NOTE | 2024-05-30 19:53 | PTCARENOTE ---
Received pt from [facility]. pt is POD #1 from a CABGx4, AVR, NICOLÁS clip. pt is sitting in chair and is assisted back to bed. pt is AAOx4, states pain is 5/10. heart sounds audible, rub present, radial and DP pulses palpable, trace generalized edema
noted, temp epicardial V-wires present, not connected to pacer box. lungs clear, diminished at b/l bases, spo2 97% on 2 LNC, x2 MS CT to -20 wall suction, no air leaks, no tidaling, no crepitus. hypoactive BS, abdomen soft, non tender, round/obese.
pt due to void, bladder scanned at 1930 for 388ml, will continue to monitor per protocol. surgical sites maintained. right IJ cordis and PIV maintained. CHG wipes used to clean pt, new tele leads and gown placed. call lopez within reach. will
continue to monitor.
[2024-05-30] MEDS: LIPITOR 40 MG PO (21:50)
--- NOTE | 2024-05-30 22:00 | PTCARENOTE ---
Pt is due to void. pt's last bladder scan was 525mls of urine at 2200. CVPA made aware. pt request to wait another hour or two before straight cathing. CVPA agreed. Pt will be bladder scanned again at 0000. if unable to void at this time, pt will be
straight cathed. on going monitoring
[2024-05-30] MEDS: FLOMAX 0.4 MG PO (22:14)
[2024-05-31] VITALS (25 sets, daily range): BP systolic 83–119; BP diastolic 42–81; PULSE 72; O2SAT 96–100; BMI 37.4
[2024-05-31] MEDS: LIDOCAINE URO-JET 2% 1 SYRINGE TOPICAL ×2 (00:45→10:52)
--- NOTE | 2024-05-31 00:45 | PTCARENOTE ---
at midnight pt attempted to void again and was unable. uro-jet lidocaine was applied and pt was straight cathed for 625mls of dark luis urine, small blood clots noted. pt tolerated procedure. will continue to monitor.
[2024-05-31 03:31] LABS: Hematocrit 26.7 % (39.0-52.0); Hemoglobin 9.2 g/dL (13.0-18.0); Mean Corp Hgb Conc. 34.5 g/dL (33.0-37.0); Mean Corpuscular Hgb 32.2 pg (27.0-31.0); Mean Corpuscular Volume 93.4 fL (80.0-94.0); Mean Platelet Volume 10.4 fL (7.4-10.4); Platelet Count 86 10^3/uL (130-400); Red Blood Cell Count 2.86 10^6/uL (4.70-6.10); Red Cell Dist. Width 13.3 % (11.5-14.5)
[2024-05-31 03:48] LABS: Blood Urea Nitrogen 29 mg/dl (9-20); Calcium 9.2 mg/dl (8.4-10.2); Carbon Dioxide 28 mmol/L (22-30); Chloride 101 mmol/L (98-107); Estimated Creatinine Clearance 116 ml/min; Glucose 130 mg/dl (70-99); Magnesium 1.9 mg/dl (1.6-2.3); Potassium 4.4 mmol/L (3.5-5.1); Sodium 135 mmol/L (135-145); eGFR > 60.00
[2024-05-31] MEDS: TYLENOL 1000 MG PO ×3 (05:58→21:02)
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
[2024-05-31] MEDS: LOPRESSOR 12.5 MG PO (08:27)
[2024-05-31] MEDS: MAGNESIUM OXIDE 500 MG PO ×2 (08:27→19:37)
[2024-05-31] MEDS: LASIX 40 MG IV (08:27)
[2024-05-31] MEDS: LIDOCAINE 4% PATCH 1 PATCH TOPICAL (08:28)
[2024-05-31] MEDS: PACERONE 200 MG PO ×3 (08:28→21:02)
[2024-05-31] MEDS: PROTONIX 40 MG PO (08:28)
[2024-05-31] MEDS: BACTROBAN 2% OINTMENT 1 APPLIC NASAL ×2 (08:28→19:36)
[2024-05-31] MEDS: LOW STRENGTH ASPIRIN 81 MG PO (08:28)
[2024-05-31] MEDS: NEURONTIN 100 MG PO ×3 (08:28→21:02)
[2024-05-31] MEDS: SENOKOT-S 1 TABLET PO ×2 (08:28→19:37)
--- NOTE | 2024-05-31 08:45 | PTCARENOTE ---
Pt assessed while he was lying in bed. Pt alert and oriented x4. Pt rates sternal pain 3/10, states tolerable. Denies shortness of breath and nausea. HOLDER with equal strength throughout. Assisted to bed with 1 assist. NSR on tele with rates 70s-80s.
BP 119/57. Bilateral radial pulses palpable. Bilateral DP pulses weakly palpable. Generalized +2 edema throughout. +Rub. Epicardial v-wire tied to temp pacer box. POX 96% on 2L NC. Lungs diminished in the bases. IS encouraged. Occasional moist
nonproductive cough noted. Mediastinal chest tubes x2 y-sited to 1 atrium to -20cm suction draining serosanguineous fluid. No air leaks, tidaling, or crepitus noted. Abdomen soft, round, obese, nontender. +BS +gas. Due to void. Sternal incision
approximated with skin glue, LSW. Chest tube dressing CDI. Right groin incision approximated with skin glue, ROSALINO. Right knee incision approximated with skin glue, LSW. Right IJ cordis and Right hand 20g PIV intact. See MAR for medication
administration. See worklist for complete nursing assessment. Plan of care reviewed and patient in agreement.
--- NOTE | 2024-05-31 09:00 | PTCARENOTE ---
Afib noted on tele. EKG completed to confirm. CT MOTO MIX OPERATOR notified. 5mg IV lopressor, amio bolus ordered & started. BP stable.
--- NOTE | 2024-05-31 09:00 | PTCARENOTE ---
CT OYSTER SHIPPER at bedside to pull epicardial v-wire. Pt tolerated. q15min vitals set. Monitoring CT output.
--- NOTE | 2024-05-31 09:02 | W.PN.UPDATE ---
Update Note
Progress Note Update
One epicardial bipolar ventricular pacing wire removed without difficulty. Bedrest x 1 hour. V/S q15min x 1 hour
--- NOTE | 2024-05-31 09:15 | PTCARENOTE ---
Pt voided 250mL luis urine via the urinal. Bladder scanned for 518mL, CT SUPERINTENDENT [facility]STIT[facility] notified. VO to give patient additional time when bedrest is finished post pulling v-wire to help pt void.
[2024-05-31] MEDS: LOPRESSOR 5 MG IV (09:20)
[2024-05-31] MEDS: CORDARONE 103 MG IV (09:29)
--- NOTE | 2024-05-31 09:45 | PTCARENOTE ---
Pt voided an additional 300ml luis urine via the urinal, post void residual 508mL. Continuing to give pt additional time to urinate as per CT CANINE DEPUTY orders.
[2024-05-31] MEDS: CORDARONE 518 MG IV (10:08)
--- NOTE | 2024-05-31 10:10 | PTCARENOTE ---
CT output minimal post pull of v-wire. Mediastinal chest tubes d/c as per orders. Dressing applied. Pt tolerated.
[2024-05-31] MEDS: FLOMAX 0.4 MG PO (10:30)
--- NOTE | 2024-05-31 11:00 | PTCARENOTE ---
Assisted pt to stand, additional 250mL luis urine voided in the urinal. Post void residual 368, CT CLIENT SERVICES ASSOCIATE notified, orders to replace rosas catheter. Completed. Pt resting in bed at this time.
--- NOTE | 2024-05-31 12:00 | PTCARENOTE ---
Pt reassessed. A&Ox4. Pt denies pain at this time. Sitting up in the chair eating lunch. Afib on tele with rates in the 70s. BP 85/50. Denies dizziness/lightheadedness. POX 96% on RA. Surgical sites stable. Tucker catheter draining adequate amounts
of clear yellow urine. Cordis and PIV intact. Amio gtt infusing at 1mg/min per protocol. Pt's daughter at bedside.
--- NOTE | 2024-05-31 12:38 | CM ---
CM following for DC planning needs.
Met w/ patient and dtr., Yulissa at bedside.
Pt. reports that he is feeling well. Observed patient ambulating with Cardiac Rehab later, doing well.
We reviewed DC planning needs. Plan is for home w/ CT Transitional Care RN.
CM to cont. to follow.
--- NOTE | 2024-05-31 14:07 | W.PN.CARDCBS ---
Addendum entered and electronically signed by Hernan Muro MD 05/31/24 16:55:
I saw and examined the patient.
The Nursing Support Worker's note was reviewed and I agree with the note.
Comment:
GEN: No distress, awake, Ox3
HEENT: supple, anicteric, mmm
LUNGS: CTA, no wheezes/rales
CV: Irreg, S1/S2, 1/6 syst LSB, no gallop
ABD: soft, BS+, NT/ND
EXT: No edema
NEURO: Gross non-focal
SKIN: sternotomy
Plan:
remains in afib. Cont Amiodarone 200mg po tid. rate is controlled.
Would continue aspirin and Plavix for now. May need to consider full anticoagulation
Hemoglobin 9.2.
Original Note:
Today's Communication / Plan
-
continue post op care
follow rhythm, BP, plts
Impression / Plan
-
Primary Risk Consultant: Dr. Camara of [facility]
Assessment:
Severe
MV CAD by cath 04/24/24
Status post CABG x 4 In situ BERNABE to LAD, Ao to RSVG to diagonal sequential to OM, Ao to RSVG to RPDA, bioprosthetic AVR, left atrial appendage clip 05/29/24
Post op afib
Post op urinary retention
HTN
HLD
mild B/L carotid stenosis, <50% stenosis overall B/L
GLORIA
Prediabetes
Bilateral lower extremity neuropathy
OA
Obesity
History of multinodular goiter
Former smoker
Alcohol use disorder
Plan:
-s/p CABG x4, bio AVR, NICOLÁS clip 05/29/24
-BPs low. will follow, may need to hold lopressor. was not on any antiHTN as OP
-noted to have urinary retention overnight, rosas catheter placed back
-plts down to 86K. plavix held and follow
-noted to go into afib earlier today, and remains in rate controlled afib at present after IV amio bolus. continue po amio. patient asymptomatic.
-pending duration of post op afib, may need to consider for OAC upon DC
-continue post op care, OOB/IS as able
-d/w nursing
Progress Note - Risk Consultant
Subjective
Date of Service: May 31, 2024
no complaints
Objective
Labs:
05/31/24 02:57
05/31/24 02:57
Labs
Hgb 9.2 g/dL (13.0-18.0) L 05/31/24 02:57
Hct 26.7 % (39.0-52.0) L 05/31/24 02:57
Plt Count 86 10^3/uL (130-400) L D 05/31/24 02:57
PT 17.1 Sec (11.4-14.6) H 05/29/24 17:00
INR 1.34 05/29/24 17:00
APTT 33.0 Sec (23.4-35.0) 05/29/24 17:00
Sodium 135 mmol/L (135-145) 05/31/24 02:57
Potassium 4.4 mmol/L (3.5-5.1) 05/31/24 02:57
BUN 29 mg/dl (9-20) H 05/31/24 02:57
Creatinine 0.7 mg/dL (0.7-1.3) 05/31/24 02:57
Glucose 130 mg/dl (70-99) H 05/31/24 02:57
Vital Signs and I&O:
Vital Signs
Temp Pulse Resp BP Pulse Ox
97.6 F 77 16 86/70 96
05/31/24 12:00 05/31/24 12:15 05/31/24 12:00 05/31/24 12:03 05/31/24 12:00
Vital Signs
Temp Pulse Resp BP Pulse Ox
97.6 F 77 16 86/70 96
05/31/24 12:00 05/31/24 12:15 05/31/24 12:00 05/31/24 12:03 05/31/24 12:00
Intake & Output
05/29/24 05/30/24 05/31/24 06/01/24
07:59 07:59 07:59 07:59
Intake Total 708.74 / 1081.34 1141.8 / 1151.8 63.3 / 63.3
Output Total 1055 / 1075 880 / 920 1250 / 1250
Balance -346.26 / 6.34 261.8 / 231.8 -1186.7 / -1186.7
Physical Exam
Physical Exam
GEN: No distress, awake, alert, oriented x3. sitting in chair
HEENT: supple, anicteric, mmm, eomi
LUNGS: CTA B/L, no wheezes
CV: Irreg, S1/S2, + rub
EXT: No cyanosis, clubbing. trace to 1+ edema of B/L LE
NEURO: Gross non-focal
SKIN: Warm, pink, dry. No rash. Sternotomy dressing c/d/i.
[2024-05-31] MEDS: FERRLECIT 110 MG IV (14:44)
[2024-05-31] MEDS: NSS 500 IV (16:28)
--- NOTE | 2024-05-31 16:30 | PTCARENOTE ---
Pt reassessed. Remains in Afib in the 70s. BP 98/56. POX 94% Surgical sites stable. Pt ambulated in the leahy 50'. tolerated. Tucker in place draining clear luis urine. No other acute changes.
[2024-05-31] MEDS: ROXICODONE 5 MG PO (16:34)
--- NOTE | 2024-05-31 16:54 | CM ---
Priced Taylor thru patient pharmacy plan, .
Patient responsible for 25% of cost of medication as this is tier 3. Cost is estimated to be $145.48/mo.
I also priced Xarelto and pricing is similar at 143.51/mo.
I will place free 30 d coupon in patient's chart.
--- NOTE | 2024-05-31 18:00 | PTCARENOTE ---
pt noted to be in NSR on tele. BP stable. CT PIT SHOVELER notified.
--- NOTE | 2024-05-31 19:54 | PTCARENOTE ---
Received pt from [facility]. pt is POD #2 from a CABGx4, AVR, NICOLÁS clip. pt is sitting in chair and is assisted back to bed. pt is AAOx4, states pain is 0/10. NSR on monitor, VSS. Afib during the day, converted to NSR at 1741. heart sounds audible,
radial and DP pulses palpable, +1 generalized edema noted, temp epicardial V-wires pulled by [facility]. lungs clear, spo2 93% on RA, MS CT pulled today by [facility], dressing clean and dry.+BSx 4 quadrants, abdomen soft, non tender, round/obese,
passing gas, no BM since surgery. urinary retention throughout the day, rosas catheter placed by [facility], urine is dark yellow, rosas care provided. surgical sites maintained. right IJ cordis and PIV maintained. amiodarone gtt infusing. CHG wipes
used to clean pt, new tele leads and gown placed. call lopez within reach. will continue to monitor.
[2024-05-31] MEDS: LIPITOR 40 MG PO (21:02)
[2024-06-01] VITALS (11 sets, daily range): BP systolic 122–154; BP diastolic 52–80; PULSE 84; O2SAT 96–98; BMI 37.4
--- NOTE | 2024-06-01 | PTCARENOTE ---
Pt assessment unchanged. NSR on monitor. VSS. will continue to monitor.
[2024-06-01 03:39] LABS: Blood Urea Nitrogen 23 mg/dl (9-20); Calcium 8.8 mg/dl (8.4-10.2); Carbon Dioxide 32 mmol/L (22-30); Chloride 101 mmol/L (98-107); Estimated Creatinine Clearance 117 ml/min; Glucose 110 mg/dl (70-99); Magnesium 1.9 mg/dl (1.6-2.3); Potassium 4.1 mmol/L (3.5-5.1); Sodium 134 mmol/L (135-145); eGFR > 60.00
[2024-06-01 03:47] LABS: Hematocrit 24.5 % (39.0-52.0); Hemoglobin 8.6 g/dL (13.0-18.0); Mean Corp Hgb Conc. 35.1 g/dL (33.0-37.0); Mean Corpuscular Hgb 32.7 pg (27.0-31.0); Mean Corpuscular Volume 93.2 fL (80.0-94.0); Mean Platelet Volume 10.7 fL (7.4-10.4); Platelet Count 80 10^3/uL (130-400); Red Blood Cell Count 2.63 10^6/uL (4.70-6.10); Red Cell Dist. Width 13.5 % (11.5-14.5); White Blood Cell Count 11.5 10^3/uL (4.8-10.8)
--- NOTE | 2024-06-01 04:00 | PTCARENOTE ---
Pt assessment unchanged. pt resting comfortably. NSR on monitor. VSS. am labs drawn and sent. call lopez within reach. will continue to monitor.
[2024-06-01] MEDS: TYLENOL 1000 MG PO ×3 (06:36→22:54)
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
[2024-06-01] MEDS: BACTROBAN 2% OINTMENT 1 APPLIC NASAL ×2 (08:25→19:45)
--- NOTE | 2024-06-01 08:30 | PTCARENOTE ---
Patient received from manager shift RN; AAOx4, responds spontaneously to RN and follows commands; VSS; SR with PVC's on monitor; Friction rub present; +1 generalized edema; +1 DP and +2 radial pulses; Shallow respirations; Fine crackles at left base;
SpO2 92-96% on RA; IS 1500 ml; Tucker catheter draining clear, yellow urine; Surgical sites intact; PIVx1 - #20 right hand; RIJ Cordis with KVO and amiodarone infusing - see nursing flowsheets for further details; See nursing documentation for
further information.
[2024-06-01] MEDS: PROTONIX 40 MG PO (08:32)
[2024-06-01] MEDS: SENOKOT-S 1 TABLET PO ×2 (08:32→19:45)
[2024-06-01] MEDS: FLOMAX 0.4 MG PO (08:32)
[2024-06-01] MEDS: MAGNESIUM OXIDE 500 MG PO ×2 (08:32→19:45)
[2024-06-01] MEDS: PACERONE 200 MG PO ×3 (08:33→22:54)
[2024-06-01] MEDS: NEURONTIN 100 MG PO ×3 (08:33→22:54)
[2024-06-01] MEDS: LIDOCAINE 4% PATCH TOPICAL (08:37)
[2024-06-01] MEDS: LOW STRENGTH ASPIRIN 81 MG PO (09:38)
--- NOTE | 2024-06-01 10:29 | W.PN.CARDCBS ---
Addendum entered and electronically signed by Hernan Muro MD 06/01/24 11:39:
I saw and examined the patient.
The Power Washer's note was reviewed and I agree with the note.
Comment:
GEN: No distress, awake, Ox3
HEENT: supple, anicteric, mmm
LUNGS: CTA, no wheezes/rales
CV: Reg, S1/S2, no murmur
ABD: soft, BS+, NT/ND
EXT: No edema
NEURO: Gross non-focal
SKIN: sternotomy
Plan:
Back in sinus rhythm. Continue to increase activity. Continue amiodarone 200 mg p.o. 3 times daily. If has further episodes of A-fib would consider full anticoagulation
Continue aspirin Plavix and atorvastatin.
Blood pressure is improved today. Agree with restarting low-dose metoprolol.
Original Note:
Today's Communication / Plan
-
will start lasix 40 mg daily
Continue supportive postop care
Blood pressure improved/elevated this morning. Back on low-dose Metoprolol
Impression / Plan
-
Primary Spiral Winder: Dr. Camara of [facility]
Assessment:
Severe
MV CAD by cath 04/24/24
Status post CABG x 4 In situ BERNABE to LAD, Ao to RSVG to diagonal sequential to OM, Ao to RSVG to RPDA, bioprosthetic AVR, left atrial appendage clip 05/29/24
Post op afib
Post op urinary retention
HTN
HLD
mild B/L carotid stenosis, <50% stenosis overall B/L
GLORIA
Prediabetes
Bilateral lower extremity neuropathy
OA
Obesity
History of multinodular goiter
Former smoker
Alcohol use disorder
Plan:
-POD #3 s/p CABG x4, bio AVR, NICOLÁS clip 05/29/24
BPs had been lower yesterday, now improved. Metoprolol was on hold, now restarted
-was not on any antiHTN as OP
-back in NSR after going into afib 05/31/2024. Rates were controlled with IV amio bolus. Pt was asymptomatic with afib. Remains on oral Amio.
-telem reviewed: NSR 70s-80s
-noted to have urinary retention overnight, rosas catheter placed back
-Weights trending up, 10 lbs since surgery. 243 pounds preop, now 253 pounds.
-Chest x-ray today 06/01/2024: Stable left basilar atelectasis, no overt pulmonary vascular congestion
-will start lasix 40 mg IV daily. BUN 23, creat 0.7, K 4.1
-plts trending down to 80K. plavix on hold and follow
-pending duration of post op afib, may need to consider for OAC upon DC
-continue post op care, OOB/IS as able
-d/w nursing, pt, and daughter Yulissa
Progress Note - Spiral Winder
Subjective
Date of Service: June 01, 2024
Walked in hallway this morning
Remains in normal sinus rhythm
wt up 10 lbs since surgery and has LE edema
Objective
Labs:
06/01/24 03:00
06/01/24 03:00
Labs
Hgb 8.6 g/dL (13.0-18.0) L 06/01/24 03:00
Hct 24.5 % (39.0-52.0) L 06/01/24 03:00
Plt Count 80 10^3/uL (130-400) L 06/01/24 03:00
PT 17.1 Sec (11.4-14.6) H 05/29/24 17:00
INR 1.34 05/29/24 17:00
APTT 33.0 Sec (23.4-35.0) 05/29/24 17:00
Sodium 134 mmol/L (135-145) L 06/01/24 03:00
Potassium 4.1 mmol/L (3.5-5.1) 06/01/24 03:00
BUN 23 mg/dl (9-20) H 06/01/24 03:00
Creatinine 0.7 mg/dL (0.7-1.3) 06/01/24 03:00
Glucose 110 mg/dl (70-99) H 06/01/24 03:00
Vital Signs and I&O:
Vital Signs
Temp Pulse Resp BP Pulse Ox
98.3 F 98 16 154/74 95
06/01/24 08:24 06/01/24 09:08 06/01/24 08:24 06/01/24 09:08 06/01/24 09:08
Vital Signs
Temp Pulse Resp BP Pulse Ox
98.3 F 98 16 154/74 95
06/01/24 08:24 06/01/24 09:08 06/01/24 08:24 06/01/24 09:08 06/01/24 09:08
Intake & Output
05/30/24 05/31/24 06/01/24 06/02/24
06:59 06:59 06:59 06:59
Intake Total 696.14 / 708.74 1154.4 / 1154.4 376.4 / 376.4 173.4 / 173.4
Output Total 1055 / 1055 880 / 880 2335 / 2335 90 / 90
Balance -358.86 / -346.26 274.4 / 274.4 -1958.6 / -1958.6 83.4 / 83.4
Physical Exam
Physical Exam
GEN: No distress, awake, Ox3
HEENT: supple, anicteric, mmm
LUNGS: Decreased at bases no wheezes/rales
CV: Reg, S1/S2, + rub
ABD: soft, BS+, NT/ND
EXT: trace LE edema
NEURO: Gross non-focal
SKIN: No rash
[2024-06-01] MEDS: LASIX 40 MG IV (11:56)
--- NOTE | 2024-06-01 13:11 | PTCARENOTE ---
Patient ambulating hallways with RN; IV Lasix 40 mg ordered and given; IV Amiodarone infusion completed; Patient resting comfortably in bed
[2024-06-01] MEDS: FERRLECIT 110 MG IV (14:01)
[2024-06-01] MEDS: NSS IV (16:45)
--- NOTE | 2024-06-01 16:46 | PTCARENOTE ---
Patient ambulating in hallways with RN; Resting comfortably in chair
[2024-06-01] MEDS: LOPRESSOR 12.5 MG PO (19:45)
--- NOTE | 2024-06-01 20:00 | PTCARENOTE ---
report received from previous RN, walking rounds done. pt in bed, AAOx4. pt denies any pain. VSS. NSR on monitor, HR 70s. b/l radial and DP pulses palpable. heart tones clear. RIJ cordis intact w KVO infusing. b/l breath sounds present. POX 93% on
room air. IS encouraged. rosas catheter intact, draining CYU. bowel sounds present. all surgical sites stable. see worklist for full assessment, VS, and interventions. pt resting comfortably w call lopez in reach.
[2024-06-01] MEDS: LIPITOR 40 MG PO (22:54)
[2024-06-02 05:26] VITALS: BP 127/62
[2024-06-02 06:00] VITALS: BMI 37.0
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
--- NOTE | 2024-06-02 06:15 | PTCARENOTE ---
no changes in assessment. VSS. AM labs drawn and sent. pt assisted OOB to chair, weight obtained. pt resting comfortably.
[2024-06-02] MEDS: TYLENOL 1000 MG PO ×2 (06:23→15:00)
[2024-06-02 06:49] LABS: Blood Urea Nitrogen 17 mg/dl (9-20); Calcium 8.8 mg/dl (8.4-10.2); Carbon Dioxide 33 mmol/L (22-30); Chloride 101 mmol/L (98-107); Estimated Creatinine Clearance > 125 ml/min; Glucose 95 mg/dl (70-99); Sodium 136 mmol/L (135-145); eGFR > 60.00
[2024-06-02 06:50] LABS: Hematocrit 24.7 % (39.0-52.0); Hemoglobin 8.6 g/dL (13.0-18.0); Mean Corp Hgb Conc. 34.8 g/dL (33.0-37.0); Mean Corpuscular Hgb 32.6 pg (27.0-31.0); Mean Corpuscular Volume 93.6 fL (80.0-94.0); Mean Platelet Volume 10.3 fL (7.4-10.4); Platelet Count 93 10^3/uL (130-400); Red Blood Cell Count 2.64 10^6/uL (4.70-6.10); Red Cell Dist. Width 13.5 % (11.5-14.5); White Blood Cell Count 7.8 10^3/uL (4.8-10.8)
--- NOTE | 2024-06-02 08:00 | PTCARENOTE ---
Resumed care of patient. Walking rounds completed with previous RN. Pt assessed while he was sitting in the chair. Pt alert and oriented x4. Denies pain, shortness of breath, and nausea. Ambulates in the leahy and room with standby assist. Completed
stairs, pt tolerated. NSR on tele with rates in the 80s. BP 115/72. Bilateral radial pulses palpable, DP weak. +1 lower extremity edema. POX 94% on RA. Lungs clear throughout. IS encouraged-1500mL achieved. Abdomen soft, round, obese, nontender.
+BS. +BM. Tucker intact draining adequate amounts of clear luis urine. Sternal incision approximated with skin glue, ROSALINO. Old chest tube sites open, not approximated, redressed. Right groin incision approximated with skin glue, ROSALINO. Right knee
incision approximated with skin glue, ROSALINO. Right IJ cordis intact. Right hand PIV intact. See MAR for medication administration. See worklist for complete nursing assessment. Plan of care reviewed and patient in agreement.
[2024-06-02 08:28] VITALS: BP 115/72
[2024-06-02] MEDS: BACTROBAN 2% OINTMENT 1 APPLIC NASAL (08:36)
[2024-06-02] MEDS: LIDOCAINE 4% PATCH TOPICAL (08:36)
[2024-06-02] MEDS: FLOMAX 0.4 MG PO (08:37)
[2024-06-02] MEDS: PROTONIX 40 MG PO (08:37)
[2024-06-02] MEDS: SENOKOT-S 1 TABLET PO (08:37)
[2024-06-02] MEDS: LOPRESSOR 12.5 MG PO (08:37)
[2024-06-02] MEDS: PACERONE 200 MG PO (08:37)
[2024-06-02] MEDS: LASIX 40 MG IV (08:37)
[2024-06-02] MEDS: LOW STRENGTH ASPIRIN 81 MG PO (08:37)
[2024-06-02] MEDS: MAGNESIUM OXIDE 500 MG PO (08:37)
[2024-06-02] MEDS: NEURONTIN 100 MG PO (08:37)
--- NOTE | 2024-06-02 10:45 | PTCARENOTE ---
Tucker d/c per orders. Pt tolerated.
--- NOTE | 2024-06-02 11:30 | PTCARENOTE ---
Pt reassessed. Remains NSR with rates in the 70s. BP 111/43. POX 95% on RA. Due to void post rosas removal. No other acute changes from previous assessment.
[2024-06-02 11:33] VITALS: BP 111/73
[2024-06-02] MEDS: PLAVIX 75 MG PO (12:05)
--- NOTE | 2024-06-02 13:39 | W.[place]-PDMP ---
[place]-PD[place]
-
Checked the [place]- Prescription Drug Monitoring Program website, no red flags identified; safe to proceed with prescription.
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
[2024-06-02 15:03] VITALS: BP 130/65
[2024-06-02] MEDS: NEURONTIN PO (15:11)
[2024-06-02] MEDS: PACERONE PO (15:11)
[2024-06-02] MEDS: NSS IV (15:11)
--- NOTE | 2024-06-02 16:00 | PTCARENOTE ---
Pt reassessed. Pt stable. NSR on tele with rates in the 70s. BP stable. Pt voided 150mL luis urine, bladder scanned for 0ml. Discharge order received. Cordis d/c. Pt showered, tolerated. PIV d/c. All discharge information reviewed and all questions
answered. Pt wheeled out to car via wheelchair.
== END 2024-06-02 16:06 | disposition home or self-care (01) | DRG 220 ==
LOC: CVICU 08:03
PROVIDERS: Anesthesiology; Nurse Practitioner; ADMITTING PHYSICIAN Thoracic Surgery (Cardiothoracic Vascular Surgery); CONSULT PHYSICIAN Internal Medicine; CONSULT PHYSICIAN Internal Medicine Cardiovascular Disease; FAMILY PHYSICIAN Student in an Organized Health Care Education/Training Program
PROC: 06BP4ZZ Excision of Right Saphenous Vein, Percutaneous Endoscopic Approach (ICD-10-PCS; 2024-05-29)
PROC: 5A1221Z Performance of Cardiac Output, Continuous (ICD-10-PCS; 2024-05-29)
PROC: 02100Z9 Bypass Coronary Artery, One Artery from Left Internal Mammary, Open Approach (ICD-10-PCS; 2024-05-29)
PROC: B24BZZ4 Ultrasonography of Heart with Aorta, Transesophageal (ICD-10-PCS; 2024-05-29)
PROC: 021209W Bypass Coronary Artery, Three Arteries from Aorta with Autologous Venous Tissue, Open Approach (ICD-10-PCS; 2024-05-29)
PROC: 02L70CK Occlusion of Left Atrial Appendage with Extraluminal Device, Open Approach (ICD-10-PCS; 2024-05-29)
PROC: 02RF08Z Replacement of Aortic Valve with Zooplastic Tissue, Open Approach (ICD-10-PCS; 2024-05-29)
DX: I35.0 Nonrheumatic aortic (valve) stenosis (principal); A69.23 Arthritis due to Lyme disease; D62 Acute posthemorrhagic anemia; J98.11 Atelectasis; I25.118 Atherosclerotic heart disease of native coronary artery with other forms of angina pectoris; E78.00 Pure hypercholesterolemia, unspecified; I10 Essential (primary) hypertension; I65.23 Occlusion and stenosis of bilateral carotid arteries; K75.81 Nonalcoholic steatohepatitis (NASH); R73.03 Prediabetes; G57.93 Unspecified mononeuropathy of bilateral lower limbs; E04.2 Nontoxic multinodular goiter; F10.10 Alcohol abuse, uncomplicated; E66.812 Obesity, class 2; M17.11 Unilateral primary osteoarthritis, right knee; D69.59 Other secondary thrombocytopenia; R33.9 Retention of urine, unspecified; E86.1 Hypovolemia; E87.70 Fluid overload, unspecified; I48.91 Unspecified atrial fibrillation; Z68.38 Body mass index [BMI] 38.0-38.9, adult; Z79.82 Long term (current) use of aspirin; Z79.899 Other long term (current) drug therapy; Z82.49 Family history of ischemic heart disease and other diseases of the circulatory system; Z87.891 Personal history of nicotine dependence
CPT/HCPCS: 88305; 88311; 36415; 71045; 71046; 80048; 80053; 81003; 81015; 82248; 82330; 82565; 82805; 82810; 82947; 82962; 83036; 83735; 84132; 84302; 84520; 85014; 85018; 85025; 85027; 85049; 85610; 85611; 85730; 86850; 86900; 86901; 86920; 87070; 87086; 93005; 93312; 93320; 93325; 93880; 94002; J2916